=== PATIENT | female | born 1970 | race Caucasian/White ===

== ENCOUNTER 2016-06-15 07:42 | Emergency (ER) | payer OTHER ==
[~2016-06-15] VITALS: Ht 172.7 cm; Wt 114.2 kg
[2016-06-15] MEDS ORDERED: SODIUM CHLORIDE 0.9% 1,000 ML IV ONE (08:27)
[2016-06-15] MEDS ORDERED: ASPIRIN 81 MG TABLET CHEW ONE (08:41)
[2016-06-15] MEDS ORDERED: LORazepam 2 MG/ML, 1ML ONE (08:42)
[2016-06-15] MEDS ORDERED: ASPIRIN 81 MG TABLET CHEW PO ONE (09:00)
[2016-06-15] MEDS ORDERED: LORazepam 2 MG/ML, 1ML IVPush ONE (09:00)
[2016-06-15 09:09] LABS: HEMOGLOBIN 13.2 g/dL (11.7-16.4)
[2016-06-15 09:22] LABS: BLOOD UREA NITROGEN 11 mg/dL (7-18)
[2016-06-15 09:29] LABS: IS PT STATUS REG ER OR PRE ER? YES
[2016-06-15 10:39] VITALS: BP 144/52
== END 2016-06-15 10:41 | disposition home or self-care (01) ==
LOC: ED 08:19
DX: R07.89 Other chest pain (principal); R20.9 Unspecified disturbances of skin sensation; F41.1 Generalized anxiety disorder; E78.5 Hyperlipidemia, unspecified; Z88.0 Allergy status to penicillin; Z91.011 Allergy to milk products
CPT/HCPCS: 36415; 72125; 80048; 82040; 84484; 85025; 93005; 96361; 96374; 99285; J2060; J7030